=== PATIENT | female | born 1960 | race Caucasian/White ===

== ENCOUNTER → 2017-04-12 | Outpatient (CLI) | payer OTHER ==
--- NOTE | 2017-04-14 08:15 | MAMMOGRAPHY REPORT ---
UNILATERAL LEFT DIGITAL DIAGNOSTIC MAMMOGRAM TOMOSYNTHESIS AND TARGETED LEFT ULTRASOUND: 04/12/2017 CLINICAL HISTORY: 56-year-old woman called back from screening mammography for a possible lobulated 1 1 x 6 mm mass in the anterior subareolar breast. TECHNIQUE: Spot compression left CC and MLO tomosynthesis images with reconstructed C-view were obta ined. COMPARISON: Comparison is made to exams dated: 03/28/2017 mammogram, 03/24/2016 mammogram, 03/16/2015 mammogram, 03/07/2014 mammogram, 03/06/2013 mammogram, and 03/01/2012 mammogram - [facility]. BREAST COMPOSITION: The tissue of the left breast is heterogeneously dense, which may obscure small masses. FINDINGS: First targeted ultrasound was performed in the retroareolar and periareolar left breast to assess for the possible lobulated 11 x 6 mm mass seen on the recent tomosynthesis images. Throughout the periareolar and retroareolar breast, mild benign duct ectasia is identified and no discrete mass was seen. No definite sonographic correlate for the possible mammographic mass. Therefore addition al spot compression tomosynthesis views in the anterior subareolar left breast were obtained. On the additional spot compression tomosynthesis views there is no focal area of architectural distortion, irregular or spiculated mass or suspicious calcifications. No definite mass is seen on the spot comp ression MLO view. On the spot compression CC view, there is a possible mass versus normal lobulated tissue identified on CC tomosynthesis slice 28, and additional ultrasound was then again performed in the left breast. Ultrasound was again performed in the left breast evaluating a larger area throughout nearly the enti re breast. There is a very subtle isoechoic lobulated mass in the 4:00 periareolar left breast with a curvilinear tubular structure extending towards this possible mass suggesting it could represent an intraductal mass such as a papilloma or simply debris within a duct. This measures approximately 4. 6 x 2.4 x 5.5 mm. It is unclear if this correlates with the initial mammogram finding. Nevertheless , given that this is the only isoechoic duct, the remainder are anechoic confirming benign duct ectas ia, definitive characterization with tissue sampling is recommended. Correlation with postprocedure mammograms is also recommended to assess if this possibly correlates with the mammographic finding. IMPRESSION: ACR BI-RADS CATEGORY 4: SUSPICIOUS, TARGETED ULTRASOUND ACR BI-RADS CATEGORY 4: SUSPICIO US 1. Ultrasound-guided core biopsy is recommended in the 4:00 periareolar left breast for a possible i ntraductal mass versus debris within a focally ectatic duct measuring approximately 4.6 x 5.5 mm. Co rrelation with post procedure mammograms is recommended to assess if this may possibly correlate with the initial mammographic finding otherwise mammographic follow-up may be needed regarding that findi ng. These results and recommendations were discussed with the patient at the time of the exam. She tenta tively scheduled the left breast biopsy prior to leaving our department. Approximately 10% of breast cancers are not detected with mammography. A negative mammographic report should not delay biopsy if a clinically suggestive mass is present. Susan Harrison M.D. ay/:04/12/2017 12:52:45 Accounts Adjustable Clerk: Orquidea DENNIS(Lexi)(Xochilt), [facility] letter sent: Abnormal 4/5 BI-RADS Code: ACR BI-RADS Category 4: Suspicious Ultrasound BI-RADS: ACR BI-RADS Category 4: Suspici ous
== END ==
LOC: C.MAMM 08:01
PROVIDERS: ATTEND Physician Assistant
DX: N63.20 Unspecified lump in the left breast, unspecified quadrant (principal)

== ENCOUNTER → 2017-05-31 | Outpatient (CLI) | payer OTHER ==
--- NOTE | 2017-05-31 13:10 | Discharge Instructions ---
Discharge Instructions Procedure Procedure Date: May 31, 2017. Reason for visit: Left Mass. Discharge Discharge Date: May 31, 2017. Discharge Diagnosis: status post breast biopsy Instructions Activity Recommendations: Additional Limitations (see below) Return to School/Work: no limitations Recommended Home Diet: No Limitations Provider Instructions: ACTIVITY RECOMMENDATIONS: * No lifting, pushing, pulling or exercising the affected side for three days. RETURN TO SCHOOL/WORK: * You may return to work/school after the procedure, but do not perform any strenuous activities for 24 to 48 hours. MEDICATIONS: * Tylenol (two 325 mg) every four to six hours if needed for mild pain (if not allergic to Tylenol). DIET: * Resume previous diet. SPECIAL CARE INSTRUCTIONS: * Keep biopsy site dry for 24 hours. May shower after 24 hours, but do not soak (bathe) incision. * May remove Tegaderm (plastic patch) tomorrow AFTER showering. * Leave the steri-strips on for one week. Allow the steri-strips to fall off by themselves. If not off after one week, you may remove them. You may place a Bandaid crosswise over the strips, if desired. * Apply ice 10 minutes on and 10 minutes off as needed. * Wear a bra at bedtime to sleep more comfortably for 2-3 days. * Your referring physician should have the results after approximately 5 to 7 business days. * Call for unusual bleeding, fever, drainage, etc or if you have any questions call during normal business hours or after hours call Dr Bennett, [phone]. FOLLOW UP VISIT: Follow-up with Referring Physician as scheduled. Irais Nunez Recommendations: Call your doctor if: * Temperature above 101 degrees * Pain not relieved by pain medicine ordered * There is increased drainage or redness from any incision * You have any unanswered questions or concerns. Your Doctors Instructions noted above were prepared by provider Shazia Bennett. Patient Signature Section: Patient Instructions Signature Page Torri Horne Patient (or Guardian) Signature/Date: I have read and understand the instructions given to me by my caregivers. Caregiver/RN/Doctor Signature/Date: The above-named patient and/or guardian has received patient instructions on this date. + Original Patient Signature Page (only) stays with chart. Please make copy for patient.
--- NOTE | 2017-05-31 15:28 | MAMMOGRAPHY REPORT ---
ULTRASOUND GUIDED BIOPSY LEFT BREAST: 05/31/2017 CLINICAL HISTORY: Left 4:00 breast mass. PATIENT CONSENT: The procedure, risks and benefits were discussed with the patient and informed writt en consent was obtained. A timeout was performed immediately prior to the procedure. PROCEDURE DESCRIPTION: With ultrasound guidance, aseptic technique, and lidocaine as the local anesth etic (1% lidocaine to anesthetize the skin and 1% lidocaine with epinephrine to anesthetize the deepe r tissues), the mass of concern in the left 4:00 periareolar breast was sampled 4 times with a 14-gau Cura TV biopsy needle. Immediately thereafter, with ultrasound guidance, aseptic technique, and l idocaine as the local anesthetic, a metallic localizer clip was placed at the biopsy site. Direct pr essure was applied to the site immediately post procedure and hemostasis was achieved. Postprocedure unilateral mammograms were performed to confirm clip placement. The patient tolerated the procedure without complication. She was given wound care instructions. The specimens were sent to pathology f or analysis. COMPARISON: Comparison is made to exams dated: 04/12/2017 mammogram, 04/12/2017 ultrasound, 7 mammogram, 03/24/2016 mammogram, 03/16/2015 mammogram, and 03/07/2014 mammogram - [facility]. IMPRESSION: ULTRASOUND GUIDED BIOPSY Ultrasound-guided core needle biopsy of the left 4:00 breast mass, with clip placement. The patient will receive pathology results from her referring provider. Shazia Bennett M.D. /:05/31/2017 13:15:16 Resort Keeper: Orquidea BARDALESR)(M), [facility]
--- NOTE | 2017-05-31 15:33 | MAMMOGRAPHY REPORT ---
UNILATERAL LEFT DIGITAL DIAGNOSTIC MAMMOGRAM TOMOSYNTHESIS: 05/31/2017 CLINICAL HISTORY: Left 4:00 breast mass. TECHNIQUE: Breast tomosynthesis in addition to standard 2D mammography was performed. Postprocedura l left CC and ML tomosynthesis images including C views were obtained. COMPARISON: Comparison is made to exams dated: 04/12/2017 mammogram, 04/12/2017 ultrasound, 7 mammogram, and 03/24/2016 mammogram - [facility]. BREAST COMPOSITION: The tissue of the left breast is heterogeneously dense, which may obscure small masses. FINDINGS: A new ribbon-shaped biopsy marker clip is seen at the expected location of the biopsied ma ss in the left 4:00 breast. No significant postbiopsy hematoma is seen. The biopsy clip aligns with the asymmetry on the ML view, however, it does not align with the asymmetry on the cc view. However , the nodular asymmetry seen on the screening mammogram appears stable on tomosynthesis images compar ed to the 2015 exam, and in retrospect appears similar on 2-D images to multiple prior exams includin g the 2011 and 2009 exams, and is therefore felt to be benign and represent normal fibroglandular tis jeramie/duct ectasia. IMPRESSION: POST PROCEDURE IMAGING FOR MARKER PLACEMENT New biopsy marker clip status [id number] biopsy of the left 4:00 breast mass. Pathology results are pending. Approximately 10% of breast cancers are not detected with mammography. A negative mammographic report should not delay biopsy if a clinically suggestive mass is present. Shazia Bennett M.D. ah/:05/31/2017 13:24:08 Cook Vegetable: Orquidea DENNIS(Lexi)(M), [facility] BI-RADS Code: Post Procedure Imaging For Marker Placement
== END | disposition home or self-care (01) ==
LOC: C.MAMM 12:46
PROVIDERS: ATTEND Physician Assistant
DX: R92.8 Other abnormal and inconclusive findings on diagnostic imaging of breast (principal); N63.20 Unspecified lump in the left breast, unspecified quadrant